=== PATIENT | female | born 1950 | race Asian ===

== ENCOUNTER 2017-11-14 07:19 | Emergency (ER) | payer MEDICARE, MEDICAID, OTHER ==
[2017-11-14] MEDS: ONDANSETRON 4 MG INJ IV (08:38)
[2017-11-14] MEDS: SOD CHLORIDE 0.9% 1,000 ML IV ×2 (08:38→10:14)
[2017-11-14] MEDS: morphine 4 MG/ML VIAL IV (08:38)
[2017-11-14 08:52] LABS: ADD MAN DIFF? NO
[2017-11-14 08:56] LABS: BASOPHILS % 0.5 % (0.0-2.0); EOSINOPHILS % 0.5 % (0.0-7.0); HEMATOCRIT 37.2 % (37.0-47.0); HEMOGLOBIN 11.5 g/dl (12.0-16.0); LYMPHOCYTES # 1.7 10^3/ul (0.8-2.9); LYMPHOCYTES % 38.3 % (15.0-51.0); MEAN CORPUSCULAR HEMOGLOBIN 21.3 pg (29.0-33.0); MEAN CORPUSCULAR HGB CONC 30.9 g/dl (32.0-37.0); MONOCYTE # 0.6 10^3/ul (0.3-0.9); MONOCYTES % 13.9 % (0.0-11.0); NEUTROPHIL # 2.1 10^3/ul (1.6-7.5); NEUTROPHILS % 46.6 % (39.0-77.0); PLATELET COUNT 231 10^3/UL (140-415); RED BLOOD COUNT 5.39 10^6/ul (4.20-5.40)
[2017-11-14 08:56] LABS: WHITE BLOOD COUNT 4.4 10^3/ul (4.8-10.8)
[2017-11-14 09:20] LABS: ALANINE AMINOTRANSFERASE 53 IU/L (13-69); ALBUMIN 4.6 g/dl (3.3-4.9); ALBUMIN/GLOBULIN RATIO 1.39; ALKALINE PHOSPHATASE 61 IU/L (42-121); ANION GAP 15 (8-16); ASPARTATE AMINO TRANSFERASE 38 IU/L (15-46); BILIRUBIN,INDIRECT 0.6 mg/dl (0-1.1); BILIRUBIN,TOTAL 0.6 mg/dl (0.2-1.3); BLOOD UREA NITROGEN 7 mg/dl (7-20); CARBON DIOXIDE 25 mmol/L (21-31); CHLORIDE 105 mmol/L (97-110); CREATININE 0.61 mg/dl (0.44-1.00); GLUCOSE 118 mg/dl (70-220); LIPASE 57 U/L (23-300); POTASSIUM 3.2 mmol/L (3.5-5.1); SODIUM 142 mmol/L (135-144); TOTAL PROTEIN 7.9 g/dl (6.1-8.1)
[2017-11-14] MEDS: SOD CHLORIDE 0.9% 100 ML (09:28)
[2017-11-14] MEDS: IOHEXOL 300MG/ML 150 ML BTL (09:28)
== END 2017-11-14 11:45 | disposition home or self-care (01) ==
LOC: E/R 07:19
DX: R11.10 Vomiting, unspecified (principal); R19.7 Diarrhea, unspecified
CPT/HCPCS: 36415; 74177; 80053; 83690; 85025; 96374; 96375; 99285-25